=== PATIENT | female | born 1980 | race African-American/Black ===

== ENCOUNTER 2018-12-24 23:18 | Emergency (ER) | payer OTHER ==
[2018-12-25] MEDS: DEXAMETHASONE 10 MG/ML 1 ML INJ IM (01:05)
[2018-12-25] MEDS: KETOROLAC 60 MG INJ IM (01:05)
== END 2018-12-25 01:15 | disposition home or self-care (01) ==
LOC: FTE 23:18
DX: M54.9 Dorsalgia, unspecified (principal)
CPT/HCPCS: 81025; 96372; 99284-25